=== PATIENT | female | born 1985 | race Caucasian/White ===

== ENCOUNTER 2017-01-18 23:04 | Emergency (ER) | payer OTHER ==
[~2017-01-18] VITALS: Ht 160 cm; Wt 122.5 kg
[~2017-01-18 23:04] MED LIST: BACTRIM DS 8001 TAB PO; CLOMIPHENE CITR50 MG PO; FLEXERIL 5MG TAB5 MG PO; IBUPROFEN800 M1 PO; KEFLEX500 MG PO; MOTRIN 400MG (400 MG PO; PANTOPRAZOLE SO20 MG PO; PRENATAL1 TA2 PO; ROBITUSSIN W/CO10 ML PO; VICODIN5-300 PO
--- NOTE | 2017-01-19 00:01 | ED ANKLE/FOOT INJURY COMPLAINT ---
History of Present Illness General Chief Complaint: Fall Stated Complaint: PT FELL BACKWARD ON THE LEFT ANKLE Source: patient Exam Limitations: no limitations Vital Signs & Intake/Output Vital Signs & Intake/Output ED Intake and Output 01/20 0000 01/19 1200 Intake Total 0 Output Total Balance 0 Intake, Oral 0 Allergies Coded Allergies: Penicillins (RASH, BODY SWELLING 09/11/16) Reconcile Medications Ibuprofen 800 MG TABLET 1 TAB PO TID PRN pain PNV95/FERROUS FUMARATE/FA ( Formula Tablet) 28 MG IRON-800 MCG TABLET 1 TAB PO DAILY SUPPLEMENT (Reported) Triage Note: RECEIVED 31 YO FEMALE C/O SHE FELL BACKWARDS LAST NIGHT AND TWISTED HER LEFT ANKLE. PT ABLE TO ALEXEY BEAR BUT SWOLLEN AND THROBBIBG. PT REPORTS FALL WAS ACCIDENT, SHE HAS BALANCE ISSUES. Triage Nurses Notes Reviewed? yes Occurred: yesterday Duration: day(s): (1) Timing: single episode today Severity: mild, moderate Pain/Injury Location: Left: Ankle. Modifying Factors: Worsens With: movement. Associated Symptoms: swelling : No Patient currently breastfeeds: No HPI: 31-year-old female with history of scoliosis presents to the ER with chief complaint of left ankle pain after fall yesterday in her house. She states that she has some balance issues and just went down. She has been soaking it all day and water and Epsom salts. She didn't take anything for pain because she has a difficult time swallowing pills. No bruising. Pain is at the medial aspect of the distal tibia. History of previous ankle sprain or fracture that she is aware of but has a history of previous fall. Past History Travel History Traveled to [place] past 21 day No Medical History Any Pertinent Medical History? 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 No Review of Systems Review of Systems Constitutional: Denies: chills, fever. EENTM: Reports: no symptoms. Respiratory: Denies: cough, short of breath. Cardiovascular: Denies: chest pain. GI: Reports: no symptoms. Genitourinary: Reports: no symptoms. Musculoskeletal: Reports: joint pain, joint swelling. Skin: Reports: no symptoms. Neurological/Psychological: Reports: no symptoms. Hematologic/Endocrine: Denies: bruising, bleeding, polyuria, polydipsia. Immunologic/Allergic: Reports: no symptoms. All Other Systems: Reviewed and Negative Physical Exam Physical Exam General Appearance: well developed/nourished, alert, awake, mild distress Head: atraumatic Eyes: Bilateral: PERRL, EOMI. Ears, Nose, Throat: normal pharynx, normal ENT inspection, hearing grossly normal Neck: normal inspection, supple Cardiovascular/Respiratory: regular rate/rhythm Back: normal inspection Leg/Knee/Thigh Left: normal range of motion, normal inspection Leg/Knee/Thigh Right: normal range of motion, normal inspection Ankle Left: soft tissue tenderness, swelling Ankle Right: normal inspection, normal range of motion Foot Left: normal inspection, normal range of motion Foot Right: normal inspection, normal range of motion Psychiatric: awake, alert, oriented x 3 Skin: intact, normal color, warm/dry Diagram Feet Left/Right: 1) TENDER TO TOUCH Progress Differential Diagnosis: fracture, dislocation, sprain Plan of Care: Orders Procedure Date/time Status URINE 01/18 2315 Complete Laboratory Tests 01/18/172324: Urine Test NEGATIVE Diagnostic Imaging: Viewed by Me: Radiology Read. Discussed w/RAD: Radiology Read. Radiology Impression: PATIENT: SLIM SOLIMAN PRESENT AGE: 31 PATIENT ACCOUNT NO: [id number] : 84 LOCATION: [facility] ORDERING PHYSICIAN: JESUS VIGIL MD SERVICE DATE: 01/18/17 EXAM TYPE: RAD - XRY -ANKLE 3 OR MORE VIEWS L EXAMINATION: XR ANKLE, LEFT CLINICAL INFORMATION: Left ankle pain. COMPARISON: None TECHNIQUE: AP, lateral, and mortise views of the left ankle. FINDINGS: No fracture. No dislocation. Ankle mortise is congruent. Small spur at the insertion of Achilles tendon at the posterior calcaneus IMPRESSION: Normal left ankle. DICTATED BY: JALYN MENDOZA MD DATE/TIME DICTATED: 01/19/17115 TEACHER KINDERGARTEN:SELWYN DATE/TIME TRANSCRIBED:01/19/17115 CONFIDENTIAL, DO NOT COPY WITHOUT APPROPRIATE AUTHORIZATION. <Electronically signed in Other Vendor System> SIGNED BY: JALYN MENDOZA MD 01/19/17 0121 Departure Departure Time of Disposition: 0124 Disposition: HOME OR SELF CARE Condition: Stable Clinical Impression Primary Impression: Left ankle sprain Referrals: DESTIN GONZALEZ (PCP/Family) Additional Instructions: ICE, REST AND ELEVATE THE ANKLE. TAKE IBUPROFEN NEEDED FOR PAIN. RETURN NEEDED. Departure Forms: Customer Survey General Discharge Information Procedures Incision and Drainage Site: LEFT ANKLE Deirdre WRAP BY MST
--- NOTE | 2017-01-19 01:21 | RADIOLOGY REPORT ---
EXAMINATION: XR ANKLE, LEFT CLINICAL INFORMATION: Left ankle pain. COMPARISON: None TECHNIQUE: AP, lateral, and mortise views of the left ankle. FINDINGS: No fracture. No dislocation. Ankle mortise is congruent. Small spur at the insertion of Achilles tendon at the posterior calcaneus IMPRESSION: Normal left ankle.
[2017-01-19 01:35] VITALS: BP 120/83
== END 2017-01-19 01:35 ==
LOC: ERH 23:04
DX: S93.402A Sprain of unspecified ligament of left ankle, initial encounter (principal); W19.XXXA Unspecified fall, initial encounter; Y93.9 Activity, unspecified; Y92.009 Unspecified place in unspecified non-institutional (private) residence as the place of occurrence of the external cause
CPT/HCPCS: 73610-LT; 81025; 96372; J1885

== ENCOUNTER 2018-01-19 20:01 | Emergency (ER) | payer SELFPAY ==
[~2018-01-19 20:01] MED LIST changes: +BACTRIM DS TAB1 EACH PO; +IBUPROFEN600 M1 PO; +PRENATAL FORMU1 EAC1 PO; -PRENATAL1 TA2 PO
--- NOTE | 2018-01-19 21:44 | ED GI/GU/ABDOMINAL COMPLAINT ---
History of Present Illness General Chief Complaint: Abdominal Pain/Flank Pain Stated Complaint: ABD PAIN, PAIN/SWELLING TO ANKLES. +N Source: patient, family Exam Limitations: no limitations Vital Signs & Intake/Output Vital Signs & Intake/Output Vital Signs Date Time Temp Pulse Resp B/P B/P Pulse O2 O2 Flow FiO2 Mean Ox Delivery Rate 01/19 2339 98.4 97 18 123/77 97 Room Air 01/196 97 Room Air 01/19 2027 100 20 127/83 98 Allergies Coded Allergies: Penicillins (RASH, BODY SWELLING 09/11/16) Reconcile Medications Buspirone HCl 15 MG TABLET 1 TAB PO BID MENTAL HEALTH (Reported) Cyclobenzaprine HCl 10 MG TABLET 1 TAB PO TID PRN MUSCLE SPASMS (Reported) Diclofenac Sodium (Voltaren) 1 % GEL..GRAM. 1 NETTIE TOP 4 TIMES/DAY PRN PAIN/ INFLAMMATION (Reported) apply to affected area(s) Multivits,Stress Formula (Stress Formula) (Unknown Strength) TABLET (Unknown Dose) PO BID SUPPLEMENT (Reported) Vits #93/Iron Fum/FA ( Formula Tablet) (Unknown Strength) TABLET (Unknown Dose) PO DAILY SUPPLEMENT (Reported) Triage Note: PER PT ABD CRAMPING X 2 DAYS PERIOD WAS MONDAY BUT WAS VERY SHORT UNSURE IF CO NAUSEA NO VOMITING NO DIARRHEA NO FEVER Triage Nurses Notes Reviewed? yes ? n Is pt currently ? No Onset: Gradual Duration: day(s): Timing: recent history Quality/Severity: moderate Location: periumbilical Radiation: suprapubic HPI: 32 year old female presents to the emergency room with abdominal pain. She reports the pain is in her umbilical region, that is sharp and intermittent which lasts for five minutes per episode, worsens with movement and she has not tried anything to make it better. She states that she had this pain before when she had a miscarriage in 2014 but is unsure if she is now. She also has assocaited right flank pain and bilateral swelling of her lower extremities. She endorses loss of appetite and mild nausea however no vomiting. She denies fevers , chills, night sweats, chest pain, vomiting, reflux, dysuria, vaginal discharge , constipation, or diarrhea. She drinks socially rarely. Last menstrual period was last week however lasted only 4 days, unusual for this patient. (Yennifer Valorie ACUÑA) Past History Travel History Traveled to [place] past 21 day No Medical History Any Pertinent Medical History? 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 No (Valorie Friend) Review of Systems Review of Systems Constitutional: Reports: no symptoms. EENTM: Reports: no symptoms. Respiratory: Reports: no symptoms. Cardiovascular: Reports: no symptoms. GI: Reports: see HPI. Genitourinary: Reports: see HPI. Musculoskeletal: Reports: see HPI. Skin: Reports: no symptoms. Neurological/Psychological: Reports: no symptoms. Hematologic/Endocrine: Reports: no symptoms. Immunologic/Allergic: Reports: no symptoms. All Other Systems: Reviewed and Negative (Valorie Friend) Physical Exam Physical Exam General Appearance: well developed/nourished, no apparent distress, alert, awake Head: atraumatic, normal appearance Eyes: Bilateral: normal appearance. Ears, Nose, Throat, Mouth: hearing grossly normal Neck: normal inspection, supple, full range of motion Respiratory: normal breath sounds, no respiratory distress, lungs clear Cardiovascular: regular rate/rhythm Gastrointestinal: normal bowel sounds, soft, non-tender, no organomegaly Back: normal inspection, normal range of motion, no CVA tenderness Extremities: normal range of motion Neurologic/Psych: awake, alert, oriented x 3 Skin: intact, normal color, warm/dry Core Measures ACS in differential dx? No Sepsis Present: No Sepsis Focused Exam Completed? No (Valorie Friend) Progress Differential Diagnosis: appendicitis, bowel obstruction, diverticulitis, ectopic , gastritis, hernia, inflamm bowel dis, ovarian cyst, ovarian torsion, pancreatitis, peptic ulcer, PUD/GERD, SBO, threatened AB, UTI/pyelo Plan of Care: Orders Procedure Date/time Status HUMAN BETA HCG SCREEN 01/20 2236 Complete LIPASE 01/19 2154 Complete HIGH SENSITIVITY CRP 01/19 2154 Complete COMPREHENSIVE METABOLIC PANEL 01/19 2154 Complete CBC WITHOUT DIFFERENTIAL 01/19 2154 Complete URINE 01/20 2028 Complete URINALYSIS 01/20 2028 Complete Laboratory Tests 01/19/182235: Anion Gap 13, Estimated GFR > 60, BUN/Creatinine Ratio 25.7 H, Glucose 97, Calcium 9.3, Total Bilirubin 0.5, AST 28, ALT 35, Alkaline Phosphatase 96, C- React Prot High Sens 13.7 H, Total Protein 7.7, Albumin 4.0, Globulin 3.7, Albumin/Globulin Ratio 1.1, Lipase 54, Total Beta HCG NEGATIVE, CBC w Diff NO MAN DIFF REQ, RBC 4.70, MCV 83.4, MCH 27.5, MCHC 32.9 L, RDW 14.6 H, MPV 8.3, Gran % 58.3, Lymphocytes % 34.4, Monocytes % 5.2, Eosinophils % 1.7, Basophils % 0.4, Absolute Granulocytes 4.4, Absolute Lymphocytes 2.6, Absolute Monocytes 0.4 , Absolute Eosinophils 0.1, Absolute Basophils 0 01/19/182200: Total Beta HCG Cancelled 01/19/182036: Urine Color YEL, Urine Clarity CLEAR, Urine pH 6.0, Ur Specific [place] 1.025, Urine Protein NEG, Urine Ketones NEG, Urine Nitrite NEG, Urine Bilirubin NEG, Urine Urobilinogen 0.2, Ur Leukocyte Esterase NEG, Ur Microscopic EXAM NOT REQUIRED, Urine Hemoglobin NEG, Urine Glucose NEG, Urine Test NEGATIVE Patient has no abdominal tenderness on exam, will assess further with blood work. Patient states that she has had previous negative test which showed positive in the blood test. We'll check serum hCG. She has no abdominal tenderness, will hold on imaging pending her labs. Patient nontoxic appearing, vital signs are within normal limits. The patient was signed out to ARIANNE Max pending blood work results. (Yennifer ACUÑA,Valorie Styles) This patient was signed out to me by ARIANNE De Oliveira. On reevaluation her abdomen is soft and nontender she denies any abdominal pain currently. Blood work shows a negative test no elevated white blood cell count. No imaging of the belly was obtained however because patient currently is denying any symptoms it is not indicated at this time. Patient states she does want to make sure she was not . Vital signs are stable no signs of acute abdomen. Patient will be instructed to continue to monitor herself follow-up with her primary care doctor return with any concerns. (Jairo Pak) Initial ED EKG: none Hand-Off Endorsed To: Jairo Pak Endorsed Time: 2250 Pending: labs (Valorie Friend) Departure Departure Condition: Stable Clinical Impression Primary Impression: Abdominal pain Qualifiers: Abdominal location: right lower quadrant Qualified Code: R10.31 - Right lower quadrant pain Secondary Impressions: Nausea Referrals: Maxine Gannon APRN (PCP/Family) Additional Instructions: Follow-up with your HEALTH POLICY MANAGER. Maintain normal diet as tolerated. Return with any worsening symptoms or concerns. Please note that there might be incidental findings in your evaluation that are unrelated to the current emergency department visit. Please notify your primary care doctor about this emergency department visit in order to obtain and review all of the testing performed so that these incidental findings can be monitored as needed. If you had an x-ray performed, please understand that some fractures may not be seen on the initial set of x-rays. If your symptoms persist you might need a repeat set of x-rays to check for such a fracture. If you had a laceration evaluated, please understand that foreign bodies such as glass or wood may not be visible to the naked eye or on plain x-rays. If the wound becomes red, swollen, increasingly more painful or if there is any drainage from the wound, please have it reevaluated by a physician for the possibility of a retained foreign body. If you're unable to follow up as outlined in the discharge instructions please return to the emergency department. Thank you for choosing the [facility] Emergency Department for your care. It was a pleasure to serve you today. Departure Forms: Customer Survey General Discharge Information (Valorie Friend) Departure Disposition: HOME OR SELF CARE (Jairo Pak) PA/ASPHALT SPREADER Co-Sign Statement Statement: ED Attending supervision documentation- [] I saw and evaluated the patient. I have also reviewed all the pertinent lab results and diagnostic results. I agree with the findings and the plan of care as documented in the PA's/ASPHALT SPREADER's documentation. [x] I have reviewed the ED Record and agree with the PA's/ASPHALT SPREADER's documentation. [] Additions or exceptions (if any) to the PAs/ASPHALT SPREADER's note and plan are summarized below: [] (Mireya PARSONS,Bharath Church)
[2018-01-19] MEDS ORDERED: STRESS FORMULA1 EAC2 PO (22:33)
[2018-01-19] MEDS ORDERED: VOLTAREN100 GM TOP (22:34)
[2018-01-19] MEDS ORDERED: BUSPIRONE HCL15 M1 PO (22:34)
[2018-01-19] MEDS ORDERED: CYCLOBENZAPRINE10 M1 PO (22:35)
[2018-01-19 22:55] LABS: ABSOLUTE BASOPHIL COUNT 0 /CUMM (0.0-0.2); ABSOLUTE EOSINOPHIL COUNT 0.1 /CUMM (0.0-0.7); ABSOLUTE GRANULOCYTE CT 4.4 /CUMM (1.4-6.5); ABSOLUTE LYMPH COUNT 2.6 /CUMM (1.2-3.4); ABSOLUTE MONOCYTE COUNT 0.4 /CUMM (0.10-0.60); BASOPHIL % 0.4 % (0.0-2.0); EOSINOPHIL % 1.7 % (0-5); GRANULOCYTE % 58.3 % (42.2-75.2); HEMATOCRIT 39.2 % (37-47); MEAN CORPUSCULAR HGB 27.5 PG (27.0-31.0); MEAN CORPUSCULAR HGB CONC 32.9 G/DL (33.0-37.0); MEAN CORPUSCULAR VOLUME 83.4 FL (81.0-99.0); MEAN PLATELET VOLUME 8.3 FL (7.4-10.4); PLATELET COUNT 385 /CUMM (130-400); RBC DISTRIBUTION WIDTH 14.6 % (11.5-14.5); WHITE BLOOD CELL COUNT 7.5 /CUMM (4.8-10.8)
[2018-01-19 23:39] VITALS: BP 123/77
== END 2018-01-19 23:39 ==
LOC: ERH 20:01
PROVIDERS: Physician Assistant
DX: R10.33 Periumbilical pain (principal); R11.0 Nausea
CPT/HCPCS: 81003; 81025

== ENCOUNTER 2018-01-30 04:01 | Emergency (ER) | payer OTHER ==
[~2018-01-30] VITALS: Ht 170.2 cm; Wt 90.7 kg
[~2018-01-30 04:01] MED LIST changes: +BUSPIRONE HCL15 M1 PO; +CYCLOBENZAPRINE10 M1 PO; +STRESS FORMULA1 EAC2 PO; +VOLTAREN100 GM TOP
[2018-01-30 04:15] VITALS: BP 132/68
[2018-01-30] MEDS ORDERED: IBUPROFEN600 M1 PO (04:15)
--- NOTE | 2018-01-30 04:19 | ED UPPER/LOWER EXTREMITY COMPL ---
History of Present Illness General Chief Complaint: Foot or Ankle Injury Stated Complaint: "L FOOT PAIN AFTER CAN FELL ON IT" PER PT Source: patient Exam Limitations: no limitations Vital Signs & Intake/Output Vital Signs & Intake/Output Vital Signs Date Time Temp Pulse Resp B/P B/P Pulse O2 O2 Flow FiO2 Mean Ox Delivery Rate 01/30 0415 97.5 80 20 132/68 98 Room Air Allergies Coded Allergies: Penicillins (RASH, BODY SWELLING 09/11/16) Reconcile Medications Buspirone HCl 15 MG TABLET 1 TAB PO BID MENTAL HEALTH (Reported) Cyclobenzaprine HCl 10 MG TABLET 1 TAB PO TID PRN MUSCLE SPASMS (Reported) Diclofenac Sodium (Voltaren) 1 % GEL..GRAM. 1 NETTIE TOP 4 TIMES/DAY PRN PAIN/ INFLAMMATION (Reported) apply to affected area(s) Ibuprofen 600 MG TABLET 1 TAB PO TID PRN PAIN with food Multivits,Stress Formula (Stress Formula) (Unknown Strength) TABLET (Unknown Dose) PO BID SUPPLEMENT (Reported) Vits #93/Iron Fum/FA ( Formula Tablet) (Unknown Strength) TABLET (Unknown Dose) PO DAILY SUPPLEMENT (Reported) Triage Note: PT FROM HOME WITH C/O CAN OF FRUIT HITTING HER LEFT FOOT. NO OBVIOUS SIGNS OF TRAUMA NOTED, NO BRUISING. PT DENIES TAKING ANY MOTRIN OR TYLENOL PO. DR MANZANO IN TRIAGE ASSESSING PT. Triage Nurses Notes Reviewed? yes Onset: Abrupt Duration: day(s):, waxing and waning Timing: recent history Severity: mild Pain/Injury Location: Right: Foot. Method of Injury: direct blow Modifying Factors: Improves With: rest. Worsens With: movement. Associated Symptoms: left foot pain : No Patient currently breastfeeds: No HPI: 32 yo woman presents with left foot pain. She shares that 3 days ago, a can of fruit landed on her left foot. She notes continued pain with ambulation. She has not taken any medications for this pain. There is no swelling, focal bony pain, or redness. She is otherwise well. Past History Travel History Traveled to [place] past 21 day No Medical History Any Pertinent Medical History? 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 No Review of Systems Review of Systems Constitutional: Reports: no symptoms. EENTM: Reports: no symptoms. Respiratory: Reports: no symptoms. Cardiovascular: Reports: no symptoms. Gastrointestinal/Abdominal: Reports: no symptoms. Genitourinary: Reports: no symptoms. Musculoskeletal: Reports: no symptoms. Skin: Reports: no symptoms. Neurological/Psychological: Reports: no symptoms. Hematologic/Endocrine: Reports: no symptoms. Immunological: Reports: no symptoms. All Other Systems: Reviewed and Negative Physical Exam Physical Exam General Appearance: well developed/nourished, mild distress Head: atraumatic Neck: normal inspection Back: normal inspection Leg Left: left foot with minimal diffuse tenderness on left foot... no focal joint tenderness or swelling, no lymphangitic streaking. pt able to bear weight without problem. Progress Differential Diagnosis: contusion, sprain Plan of Care: Orders Procedure Date/time Status XRY-FOOT COMPLETE, LEFT 01/30 040 Active Current Medications Sig/Adeline Start time Last Medication Dose Stop Time Status Admin Ibuprofen 800 MG ONCE ONE 01/305 UNVr (Motrin) 01/30 0416 Laboratory Tests 01/30/18 0404: Urine Test Cancelled Departure Departure Disposition: HOME OR SELF CARE Condition: Stable Clinical Impression Primary Impression: Contusion Referrals: Maxine Gannon APRN (PCP/Family) Additional Instructions: RETURN ON MONDAY AFTER 7PM TO SEE DR. MANZANO IF NOT BETTER TAKE THE IBUPROFEN 600MG (3 TABS OF OVER THE COUNTER MEDS) THREE TIMES A DAY UNTIL YOUR PAIN IS BETTER. Departure Forms: Customer Survey General Discharge Information Prescriptions: Current Visit Scripts Ibuprofen 1 TAB PO TID PRN PAIN #30 TAB with food Comments discussed with patient.... pt with minimal symptoms, no focal bony tenderness... will elect to defer xray... pt given rx for ibuprofen with instructions to use RTC x 2 days and to return if symptoms not improved.
== END 2018-01-30 04:34 ==
LOC: ERH 04:01
DX: S90.32XA Contusion of left foot, initial encounter (principal); W20.8XXA Other cause of strike by thrown, projected or falling object, initial encounter; Y92.9 Unspecified place or not applicable; Y93.9 Activity, unspecified
CPT/HCPCS: 81025

== ENCOUNTER → 2018-06-29 | Day surgery (SDC) | payer OTHER ==
[~2018-06-29] VITALS: Ht 160 cm; Wt 104.3 kg
--- NOTE | 2018-06-29 08:55 | Operative Report ---
Operative/Inv Procedure Report Surgery Date: 06/29/18 Name of Procedure: excision lipoma left leg, SQ 6 cm. Pre-Operative Diagnosis: left leg mass Post-Operative Diagnosis: same Estimated Blood Loss: scant Surgeon/Battery Container Inspector: Rebeca PARSONS,Corey Johnson Anesthesia: general endotracheal tube Operative/Procedure Note Note: Patient was positioned supine after timeout and induction of anesthesia and IV antibiotics her left leg was prepped and draped in usual sterile fashion. Oblique incision measuring about 7 cm long overlying the palpable mass medial and inferior to the left knee was planned drawn along the skin lines local anesthetic was injected both superficially and deep and incision is made with a 15 blade and deepened slightly with cautery this lobulated fatty mass was subdermal we dissected around it as it deepened to the deeper fascia but not past it we didn't follow up the plane around it inferiorly used cautery for hemostasis and then the lobulated ill-defined mass was removed in one piece felt fibrotic measured 6 cm resulting cavity was checked for hemostasis irrigated and then closed in layers using interrupted 3-0 Vicryl sutures deep subdermally followed by running subcuticular 4-0 Biosyn suture for the skin itself. EBL minimal lap and sponge counts correct wound expectancy clean IV fluids crystalloid complications none patient tolerated the procedure well was extubated and returned to recovery room in satisfactory condition.
== END ==
LOC: STS 01:34
DX: D17.24 Benign lipomatous neoplasm of skin and subcutaneous tissue of left leg (principal); D64.9 Anemia, unspecified
CPT/HCPCS: 81025; 88304; J2250